=== PATIENT | male | born 1995 | race African-American/Black ===

== ENCOUNTER 2021-01-17 10:09 | Emergency (ER) | payer SELFPAY ==
[~2021-01-17] VITALS: Ht 167.6 cm; Wt 82.0 kg
[2021-01-17 10:27] VITALS: BP 133/81
[2021-01-17] MEDS ORDERED: ACET-2708 PO (10:30)
[2021-01-17] MEDS ORDERED: ACETAMINOPHEN 500MG TABLET PO ONE (10:45)
== END 2021-01-17 13:09 | disposition home or self-care (01) ==
LOC: ER 10:09
DX: U07.1 COVID-19 (principal); K21.9 Gastro-esophageal reflux disease without esophagitis; Z90.49 Acquired absence of other specified parts of digestive tract; Z88.6 Allergy status to analgesic agent
CPT/HCPCS: 87426; 99283